=== PATIENT | female | born 1995 | race Two or more races ===

== ENCOUNTER 2023-08-07 04:22 | Inpatient (IN) | payer BC ==
[2023-08-07] MEDS ORDERED: Sodium Chloride 0.9% 10 ML Syringe FLUSH PRN (16:30)
[2023-08-07] MEDS ORDERED: Oxytocin/Normal Saline 30 UNIT/500 ML BAG IV SCH (16:30)
[2023-08-07] MEDS ORDERED: Lactated Ringers 1,000 ML IV SCH (16:30)
[2023-08-07] MEDS ORDERED: Misoprostol 50 MCG (1/2 of 100 MCG) Tab VAG PRN (16:30)
[2023-08-07] MEDS ORDERED: Acetaminophen 325 MG Tab PO PRN (16:30)
[2023-08-07 17:18] LABS: HEMATOCRIT 38.7 % (37.0-47.0); HEMOGLOBIN 13.3 g/dL (12.0-16.0); MEAN CORPUSCULAR HGB CONC 34.4 g/dL (33.0-35.0); MEAN CORPUSCULAR VOLUME 87.4 fL (80-100); RED BLOOD CELL COUNT 4.43 10^6/uL (4.2-5.4); WHITE BLOOD CELL COUNT,WBC 11.1 10^3/uL (5.0-10.0)
[2023-08-07] MEDS: Sodium Chloride 0.9% 10 ML Syringe FLUSH SCH (19:10)
[2023-08-08] MEDS: Misoprostol 25 MCG (1/4 of 100 MCG) Tab VAG PRN ×5 (02:06→22:32)
[2023-08-08] MEDS: Lactated Ringers 1,000 ML IV SCH (02:10)
[2023-08-08] MEDS: Sodium Chloride 0.9% 10 ML Syringe FLUSH SCH ×3 (02:10→22:36)
[2023-08-08] MEDS ORDERED: hydrOXYzine HCl 25 MG Tab PO PRN (04:38)
[2023-08-08] MEDS ORDERED: Naloxone 2 MG/2 ML Syringe IVPUSH PRN (04:39)
[2023-08-08] MEDS ORDERED: Lidocaine 1% 30 ML SDV INJECT ONE (04:43)
[2023-08-08] MEDS ORDERED: Tranexamic Acid 1,000 MG in Sodium Chloride 0.9% 100 ML IV PRN (04:43)
[2023-08-08] MEDS ORDERED: Ondansetron 4 MG/2 ML SDV IVPUSH PRN (04:43)
[2023-08-08] MEDS ORDERED: Methylergonovine 0.2 MG/1 ML Amp IM PRN (04:43)
[2023-08-08] MEDS ORDERED: Misoprostol 400 MCG (4 X 100 MCG TAB) RECTAL PRN (04:43)
[2023-08-08] MEDS ORDERED: Carboprost Tromethamine 250 MCG/1 ML Amp IM PRN (04:43)
[2023-08-08] MEDS ORDERED: Lactated Ringers 1,000 ML IV SCH (04:45)
[2023-08-08] MEDS: fentaNYL 100 MCG/2 ML SDV IVPUSH PRN (04:57)
[2023-08-09] MEDS: fentaNYL 100 MCG/2 ML SDV IVPUSH PRN ×2 (00:05→01:23)
[2023-08-09] MEDS: Lactated Ringers 1,000 ML IV SCH ×3 (01:25→05:05)
[2023-08-09] MEDS ORDERED: fentaNYL 100 MCG/2 ML SDV ONE (02:27)
[2023-08-09] MEDS ORDERED: Bupivacaine 0.25% 10 ML SDV ONE (02:27)
[2023-08-09] MEDS ORDERED: Phenylephrine HCl In 0.9% NaCl 1 MG/10 ML Syringe IVPUSH PRN (02:52)
[2023-08-09] MEDS ORDERED: ePHEDrine 50 MG/ML SDV IVPUSH PRN ×2 (02:52→05:09)
[2023-08-09] MEDS ORDERED: Ropivacaine 200 MG in Premix Bag 1 BAG EPIDUR SCH (03:00)
[2023-08-09] MEDS ORDERED: Ondansetron 4 MG/2 ML SDV ONE (03:45)
[2023-08-09] MEDS ORDERED: Oxytocin 10 Units/1 ML SDV ONE (03:46)
[2023-08-09] MEDS ORDERED: ceFAZolin 2 GM Vial ONE (03:46)
[2023-08-09] MEDS ORDERED: Dexamethasone 4 MG/ML SDV ONE (03:46)
[2023-08-09] MEDS ORDERED: Ketorolac 30 MG/ML SDV ONE (03:46)
[2023-08-09] MEDS ORDERED: Lidocaine 2% with EPINEPHrine 1:200,000 20 ML SDV ONE (03:47)
[2023-08-09] MEDS ORDERED: Oxytocin/Normal Saline 30 UNIT/500 ML BAG ONE (04:03)
[2023-08-09] MEDS ORDERED: Carboprost Tromethamine 250 MCG/1 ML Amp IM PRN ×2 (04:05→05:09)
[2023-08-09] MEDS ORDERED: Oxytocin 10 Units/1 ML SDV IM PRN (04:05)
[2023-08-09] MEDS ORDERED: Methylergonovine 0.2 MG Tab PO PRN (04:05)
[2023-08-09] MEDS ORDERED: Citric Acid/Sodium Citrate Solution 30 ML Cup PO ONE (04:05)
[2023-08-09] MEDS ORDERED: Tranexamic Acid 1,000 MG in Sodium Chloride 0.9% 100 ML IV PRN ×2 (04:05→05:09)
[2023-08-09] MEDS ORDERED: Lactated Ringers 1,000 ML IV SCH ×3 (04:15→05:15)
[2023-08-09] MEDS ORDERED: Oxytocin/Normal Saline 30 UNIT/500 ML BAG IV SCH (04:15)
[2023-08-09] MEDS ORDERED: Methylergonovine 0.2 MG/1 ML Amp IM PRN (05:09)
[2023-08-09] MEDS ORDERED: Measles, Mumps & Rubella Vaccine 0.5 ML SDV SUBCUT ONE (05:09)
[2023-08-09] MEDS ORDERED: Acetaminophen 325 MG Tab PO PRN (05:09)
[2023-08-09] MEDS ORDERED: Misoprostol 400 MCG (4 X 100 MCG TAB) RECTAL PRN (05:09)
[2023-08-09] MEDS ORDERED: Ondansetron 4 MG/2 ML SDV IVPUSH PRN (05:09)
[2023-08-09] MEDS ORDERED: Naloxone 2 MG/2 ML Syringe IVPUSH PRN (05:09)
[2023-08-09] MEDS ORDERED: diphenhydrAMINE 50 MG/ML SDV IVPUSH PRN (05:09)
[2023-08-09] MEDS: Ketorolac 30 MG/ML SDV IVPUSH SCH ×2 (13:45→19:38)
[2023-08-09] MEDS: Simethicone 80 MG Tab.Chew PO SCH ×4 (13:46→22:51)
[2023-08-09] MEDS: Sodium Chloride 0.9% 10 ML Syringe FLUSH SCH ×2 (13:49→14:15)
[2023-08-09] MEDS: Prenatal Multivitamin with Calcium/Folic Acid/Iron Tab PO SCH (13:57)
[2023-08-09] MEDS: Ferrous Sulfate 325 MG Tab PO SCH (13:57)
[2023-08-09] MEDS: Docusate Sodium 100 MG Cap PO PRN (22:51)
[2023-08-10] MEDS: Sodium Chloride 0.9% 10 ML Syringe FLUSH SCH ×2 (01:15)
[2023-08-10] MEDS ORDERED: Ketorolac 30 MG/ML SDV ONE (01:44)
[2023-08-10] MEDS: Ketorolac 30 MG/ML SDV IVPUSH SCH (01:45)
[2023-08-10] MEDS: Acetaminophen/oxyCODONE 325-5 MG Tab PO PRN ×4 (06:13→21:45)
[2023-08-10 06:38] LABS: MEAN CORPUSCULAR HGB CONC 33.3 g/dL (33.0-35.0); MEAN CORPUSCULAR VOLUME 89.9 fL (80-100); RED BLOOD CELL COUNT 3.67 10^6/uL (4.2-5.4); WHITE BLOOD CELL COUNT,WBC 14.9 10^3/uL (5.0-10.0)
[2023-08-10] MEDS: Simethicone 80 MG Tab.Chew PO SCH ×4 (09:36→20:54)
[2023-08-10] MEDS: Ibuprofen 800 MG Tab PO PRN ×2 (09:36→17:36)
[2023-08-10] MEDS: Prenatal Multivitamin with Calcium/Folic Acid/Iron Tab PO SCH (09:38)
[2023-08-10] MEDS: Ferrous Sulfate 325 MG Tab PO SCH (09:38)
[2023-08-10] MEDS: Docusate Sodium 100 MG Cap PO PRN ×2 (09:39→20:53)
[2023-08-11] MEDS: Ibuprofen 800 MG Tab PO PRN ×2 (01:45→17:28)
[2023-08-11] MEDS: Ferrous Sulfate 325 MG Tab PO SCH (09:45)
[2023-08-11] MEDS: Docusate Sodium 100 MG Cap PO PRN ×2 (09:45→20:59)
[2023-08-11] MEDS: Simethicone 80 MG Tab.Chew PO SCH ×4 (09:45→20:59)
[2023-08-11] MEDS: Acetaminophen/oxyCODONE 325-5 MG Tab PO PRN ×3 (09:45→21:45)
[2023-08-11] MEDS: Prenatal Multivitamin with Calcium/Folic Acid/Iron Tab PO SCH (09:45)
[2023-08-12] MEDS: Ibuprofen 800 MG Tab PO PRN (01:16)
[2023-08-12] MEDS: Simethicone 80 MG Tab.Chew PO SCH ×2 (08:18→13:00)
[2023-08-12] MEDS: Docusate Sodium 100 MG Cap PO PRN (08:18)
[2023-08-12] MEDS: Prenatal Multivitamin with Calcium/Folic Acid/Iron Tab PO SCH (08:18)
[2023-08-12] MEDS: Ferrous Sulfate 325 MG Tab PO SCH (08:18)
[2023-08-12] MEDS: Acetaminophen/oxyCODONE 325-5 MG Tab PO PRN (08:18)
[2023-08-12] MEDS ORDERED: Acetaminophen/oxyCODONE 325-5 MG Tab ONE (09:26)
[2023-08-12] MEDS ORDERED: Acetaminophen/oxyCODONE 325-5 MG Tab PO ONE (13:39)
== END 2023-08-12 13:40 | disposition home or self-care (01) | DRG 540 ==
LOC: DL.OB 04:22 → OBSVTOIN 08-09 04:22
PROVIDERS: ADMIT Family Medicine; ATTEND Family Medicine
PROC: 3E0P7VZ Introduction of Hormone into Female Reproductive, Via Natural or Artificial Opening (ICD-10-PCS; 2023-08-09)
PROC: 3E0R3BZ Introduction of Anesthetic Agent into Spinal Canal, Percutaneous Approach (ICD-10-PCS; 2023-08-09)
PROC: 00HU33Z Insertion of Infusion Device into Spinal Canal, Percutaneous Approach (ICD-10-PCS; 2023-08-09)
PROC: 10D00Z1 Extraction of Products of Conception, Low, Open Approach (ICD-10-PCS; principal; 2023-08-09 04:00)
DX: O36.5930 Maternal care for other known or suspected poor fetal growth, third trimester, not applicable or unspecified (principal); O99.02 Anemia complicating childbirth; O76 Abnormality in fetal heart rate and rhythm complicating labor and delivery; Z37.0 Single live birth; Z3A.37 37 weeks gestation of pregnancy; Z28.39 Other underimmunization status; Z98.890 Other specified postprocedural states
CPT/HCPCS: 01967; 36415; 51702; 85027; 86850; 86900; 86901; 90471; 90707; 94010; A9270-GY; J1200; J1885; J2405; J2590; J2795; J3010; J3490; J7120